=== PATIENT | female | born 1980 | race Asian ===

== ENCOUNTER 2016-11-22 12:56 | Inpatient (IN) | payer OTHER ==
[~2016-11-22] VITALS: Ht 152.4 cm; Wt 53.6 kg
[2016-11-22] MEDS: LACTATED RINGER'S 1,000 ML IV SCH ×2 (13:23→21:16)
[2016-11-22] MEDS ORDERED: OXYTOCIN 30 UNITS/LR 500 ML IV PRN (13:30)
[2016-11-22] MEDS ORDERED: LACTATED RINGER'S 1,000 ML IV PRN (13:30)
[2016-11-22] MEDS ORDERED: CARBOPROST 250 MCG INJ IM PRN (13:30)
[2016-11-22] MEDS ORDERED: BUTORPHANOL 2 MG INJ IV PRN (13:30)
[2016-11-22] MEDS ORDERED: METHYLERGONOVINE 0.2 MG INJ IM PRN (13:30)
[2016-11-22] MEDS ORDERED: LIDOCAINE 1% (MPF) 30 ML INJ INJ PRN (13:30)
[2016-11-22] MEDS ORDERED: AMPICILLIN 2 GM/NS (PMX) 100 ML IV ONE (13:30)
[2016-11-22] MEDS ORDERED: OXYTOCIN 30 UNITS/LR 500 ML IV SCH ×3 (13:30)
[2016-11-22] MEDS ORDERED: IBUPROFEN 600 MG TAB PO PRN (13:30)
[2016-11-22] MEDS ORDERED: MISOPROSTOL 200 MCG TAB PR PRN (13:30)
[2016-11-22 14:29] LABS: INR 0.85; PROTIME 11.6 Sec (12.2-14.2); PT RATIO 0.9
[2016-11-22 14:30] LABS: PARTIAL THROMBOPLASTIN TIME 27.2 Sec (25.0-35.0)
[2016-11-22 15:16] VITALS: BP 95/60; PULSE 64; RESP 18; Ht 152.4 cm; Wt 53.6 kg
[2016-11-22 17:02] LABS: BASOPHIL # 0.1 10^3/ul (0.0-0.1); BASOPHILS % 0.6 % (0.0-2.0); EOSINOPHILS # 0.1 10^3/ul (0.0-0.5); HEMATOCRIT 35.4 % (37.0-47.0); HEMOGLOBIN 12.2 g/dl (12.0-16.0); LYMPHOCYTES # 1.3 10^3/ul (0.8-2.9); LYMPHOCYTES % 15.8 % (15.0-51.0); MEAN CORPUSCULAR HEMOGLOBIN 31.1 pg (29.0-33.0); MEAN CORPUSCULAR HGB CONC 34.5 g/dl (32.0-37.0); MEAN CORPUSCULAR VOLUME 90.3 fl (82.0-101.0); MEAN PLATELET VOLUME 12.5 fl (7.4-10.4); MONOCYTE # 0.8 10^3/ul (0.3-0.9); MONOCYTES % 9.6 % (0.0-11.0); NEUTROPHILS % 72.1 % (39.0-77.0); PLATELET COUNT 164 10^3/UL (140-415); RED BLOOD COUNT 3.92 10^6/ul (4.20-5.40); RED CELL DISTRIBUTION WIDTH 14.7 % (11.5-14.5); WHITE BLOOD COUNT 7.9 10^3/ul (4.8-10.8)
[2016-11-22] MEDS: AMPICILLIN 1 GM/NS (PMX) 50 ML IV SCH ×2 (17:48→21:27)
[2016-11-23] MEDS: AMPICILLIN 1 GM/NS (PMX) 50 ML IV SCH ×4 (01:33→14:14)
[2016-11-23] MEDS: LACTATED RINGER'S 1,000 ML IV SCH (06:48)
--- NOTE | 2016-11-23 16:29 | RADRPT ---
PROCEDURE: US OB biophysical profile. CLINICAL INDICATION: decreased movements, labor pain TECHNIQUE: Multiple sonographic images of the pelvis were obtained. The images were reviewed on a PACS workstation. COMPARISON: No prior studies are available for comparison. FINDINGS: There is a single viable intrauterine gestation. Cardiac activity is present with 156 beats per min tara. There is a vertex presentation. The placenta is anterior. There is no evidence of placental abruption. There is a normal amount of amniotic fluid with an ANTONIO = 19.5 cm. Biophysical profile: movement 2/2 tone 2/2. breathing 2/2 ANTONIO 2/2 Total 10/30 RPTAT: AA . IMPRESSION: Normal biophysical profile. Borderline increased ANTONIO. . .Jono Marshall MD, Date Time Electronically viewed and signed by .Jono Marshall MD, MD on 11/23/2016 16:29 .S/
== END 2016-11-23 16:57 | disposition home or self-care (01) | DRG 780 ==
LOC: L-D 12:56 → EDSTATUS 11-25 12:54
PROVIDERS: ADMIT Obstetrics & Gynecology; ATTEND Obstetrics & Gynecology
DX: O47.1 False labor at or after 37 completed weeks of gestation (principal); O99.820 Streptococcus B carrier state complicating pregnancy; O36.8130 Decreased fetal movements, third trimester, not applicable or unspecified; Z3A.39 39 weeks gestation of pregnancy
CPT/HCPCS: 76818; 85025; 85610; 85730; 86592; 86900; 86901; 87340; J0290; J2590; J7120

== ENCOUNTER 2016-11-23 23:03 | Inpatient (IN) | payer OTHER ==
[~2016-11-23] VITALS: Ht 152.4 cm; Wt 54.1 kg
[2016-11-23] MEDS ORDERED: LACTATED RINGER'S 1,000 ML IV SCH (23:25)
[2016-11-23] MEDS ORDERED: BUTORPHANOL 2 MG INJ IV PRN (23:30)
[2016-11-23] MEDS ORDERED: MISOPROSTOL 200 MCG TAB PR PRN (23:30)
[2016-11-23] MEDS ORDERED: IBUPROFEN 600 MG TAB PO PRN (23:30)
[2016-11-23] MEDS ORDERED: AMPICILLIN 2 GM/NS (PMX) 100 ML IV ONE (23:30)
[2016-11-23] MEDS ORDERED: CARBOPROST 250 MCG INJ IM PRN (23:30)
[2016-11-23] MEDS ORDERED: OXYTOCIN 30 UNITS/LR 500 ML IV SCH ×2 (23:30)
[2016-11-23] MEDS ORDERED: LIDOCAINE 1% (MPF) 30 ML INJ INJ PRN (23:30)
[2016-11-23] MEDS ORDERED: MINERAL OIL LIGHT 10 ML VIAL TOP ONE (23:30)
[2016-11-23] MEDS ORDERED: METHYLERGONOVINE 0.2 MG INJ IM PRN (23:30)
[2016-11-23] MEDS ORDERED: OXYTOCIN 30 UNITS/LR 500 ML IV PRN (23:30)
[2016-11-23 23:42] VITALS: BP 93/53; PULSE 75; RESP 18
[2016-11-23] MEDS ORDERED: LACTATED RINGER'S 1,000 ML IV PRN (23:50)
--- NOTE | 2016-11-24 02:03 | TRIAGE ---
OB Triage Datetime Report Generated by CPN: 11/24/2016 02:03 Datetime: 11/24/2016 01:00 Stage of : Recovery Pain Assessment Pain Scale: 2 Pain Presence: Constant Pain Type: Dull Pain Location: Perineum Pain Relief Measures: Comfort Measures Pain Assessment Comments: pt refusing pain medications Datetime: 11/24/2016 00:44 Stage of : Recovery Pain Assessment Pain Scale: 3 Pain Presence: Constant Pain Type: Sharp; Ache Pain Location: Perineum Pain Relief Measures: Pain Medication Given Pain Assessment Comments: local anesthesia lidocaine administered by Datetime: 11/24/2016 00:29 Stage of : Recovery Temperature Route: Oral Pain Assessment Pain Scale: 5 Pain Presence: Constant Pain Type: Sharp; Ache Pain Location: Perineum Pain Relief Measures: Pain Medication Given Pain Assessment Comments: local anesthesia lidocaine administered by dr. perez as she repairs perine um laceration Datetime: 11/24/2016 00:12 Pain Assessment Pain Scale: 10 Pain Presence: Intermittent Pain Type: Contraction Pain Location: Abdomen Pain Relief Measures: Comfort Measures Pain Assessment Comments: PT REQUESTING EPIDURAL Datetime: 11/24/2016 00:10 Vaginal Exam Dilatation (cms): 10.0 Effacement (%): 100 Station: 1 Membrane Status: Ruptured Membranes Rupture Method: Spontaneous Amniotic Fluid Color: Clear Amniotic Fluid Amount: Large Amniotic Fluid Odor: None Datetime: 11/23/2016 23:41 Stage of : Labor Assessment Type: Admission Assessment Time of Arrival: 11/23/2016 22:55 EGA: 39.2 Arrived By: Wheelchair Arrived From: Home Chief Complaint: c/o ucs Movement: Present Contractions: Regular Contractions: q5 Vaginal Bleeding: None Patient Complaints: Contractions Time Provider Notified: 11/23/2016 23:23 Provider Notified: Dr Perez Initial Plan: EFM,SVE Maternal Assessment Level of Consciousness: Fully Conscious DTR's/Clonus: DTRs 2+; No Clonus Headache: Denies Blurred Vision: No Respiratory Effort: Unlabored; Regular Rhythm; Equal Expansion Breath Sounds, Left: Clear and Equal Breath Sounds, Right: Clear and Equal Nausea/Vomiting: Denies RUQ Epigastric Pain: Denies Lower Extremities Edema: None Degree: None Upper Extremities Edema: None Degree: None Facial Edema: None Temperature Route: Oral Fall Risk Assessment History of Falling: (0) No Secondary Diagnosis: (0) No Ambulatory Aid: (0) Bedrest/Nurse Assist IV Therapy: (20) Yes Gait: (0) Normal/Bedrest/Immobile Mental Status: (0) Oriented to Own Ability Fall Score: 20 Fall Risk Score Definition: No Risk: No action required Pain Assessment Pain Scale: 9 Pain Presence: Intermittent Pain Type: Contraction Pain Location: Abdomen; Perineum Datetime: 11/23/2016 23:20 Vaginal Exam Dilatation (cms): 5.0 Datetime: 11/23/2016 16:40 Maternal Assessment Level of Consciousness: Fully Conscious DTR's/Clonus: DTRs 2+; No Clonus Headache: Denies Blurred Vision: No Nausea/Vomiting: Denies RUQ Epigastric Pain: Denies Facial Edema: None Labor Evaluation Frequency: 0 Monitor Mode: External Contraction Comments: DENIES FEELING ANY UC'S Heart Rate FHR Baseline Rate: 150 Monitor Mode: External US FHR Baseline Changes: No Baseline Change Variability: Moderate 6-25 bpm Accelerations: 15X15 Decelerations: None Category: Category I Pain Presence: None/Denies Datetime: 11/23/2016 16:01 Labor Evaluation Frequency: irreg Monitor Mode: External Duration (sec)2399: 50-60 Quality: Mild Pattern: Normal: <= 5 Contractions in 10 Minutes Resting Tone [place]: Relaxed Heart Rate FHR Baseline Rate: 155 Monitor Mode: External US Variability: Moderate 6-25 bpm Accelerations: 15X15 Decelerations: None Category: Category I Datetime: 11/23/2016 15:18 Vaginal Exam Dilatation (cms): 3.0 Effacement (%): 60 Station: -3 Exam By: Datetime: 11/23/2016 15:01 Labor Evaluation Frequency: x4 Monitor Mode: External Duration (sec)2399: 60 Quality: Mild Pattern: Normal: <= 5 Contractions in 10 Minutes Resting Tone [place]: Relaxed Heart Rate FHR Baseline Rate: 145 Monitor Mode: External US Variability: Moderate 6-25 bpm Accelerations: 15X15 Decelerations: None Category: Category I Pain Presence: None/Denies Pain Type: N/A Datetime: 11/23/2016 12:15 Labor Evaluation Frequency: x2 Monitor Mode: External Duration (sec)2399: 100-120 Quality: Mild Pattern: Normal: <= 5 Contractions in 10 Minutes Resting Tone [place]: Relaxed Heart Rate FHR Baseline Rate: 145 Monitor Mode: External US Variability: Moderate 6-25 bpm Accelerations: 15X15 Decelerations: None Category: Category I Pain Presence: None/Denies Pain Type: N/A Datetime: 11/23/2016 12:00 Labor Evaluation Frequency: X5 Monitor Mode: External Duration (sec)2399: 60-80 Quality: Mild Pattern: Normal: <= 5 Contractions in 10 Minutes Resting Tone [place]: Relaxed Heart Rate FHR Baseline Rate: 145 Monitor Mode: External US Variability: Moderate 6-25 bpm Accelerations: 15X15 Decelerations: None Category: Category I Pain Presence: None/Denies Pain Type: N/A Datetime: 11/23/2016 11:01 Labor Evaluation Frequency: X2 Monitor Mode: External Duration (sec)2399: 90-120 Quality: Mild Pattern: Normal: <= 5 Contractions in 10 Minutes Resting Tone [place]: Relaxed Heart Rate FHR Baseline Rate: 145 Monitor Mode: External US Variability: Minimal - Undetectable to <=5 bpm Accelerations: 15X15 Decelerations: None Category: Category II Pain Presence: None/Denies Pain Type: N/A Datetime: 11/23/2016 09:01 Labor Evaluation Frequency: IRREG Monitor Mode: External Duration (sec)2399: 40-60 Quality: Mild Pattern: Normal: <= 5 Contractions in 10 Minutes Resting Tone [place]: Relaxed Heart Rate FHR Baseline Rate: 145 Monitor Mode: External US Variability: Moderate 6-25 bpm Accelerations: 15X15 Decelerations: None Category: Category I Pain Assessment Pain Scale: 2 Pain Presence: Intermittent Pain Type: Contraction Pain Location: Abdomen Pain Goal: 3 Datetime: 11/23/2016 07:58 Labor Evaluation Frequency: irreg Monitor Mode: Palpation Duration (sec)2399: 50-70 Quality: Mild Pattern: Normal: <= 5 Contractions in 10 Minutes Resting Tone [place]: Relaxed Heart Rate FHR Baseline Rate: 145 Monitor Mode: External US Variability: Moderate 6-25 bpm Accelerations: 15X15 Decelerations: None Category: Category I Pain Assessment Pain Scale: 2 Pain Presence: Intermittent Pain Type: Contraction Pain Location: Abdomen Pain Goal: 3 Datetime: 11/23/2016 07:19 Assessment Type: Ongoing Assessment Maternal Assessment Level of Consciousness: Fully Conscious DTR's/Clonus: DTRs 2+; No Clonus Blurred Vision: No Respiratory Effort: Unlabored; Regular Rhythm; Equal Expansion Breath Sounds, Left: Clear and Equal Breath Sounds, Right: Clear and Equal Nausea/Vomiting: Denies RUQ Epigastric Pain: Denies Lower Extremities Edema: None Degree: None Upper Extremities Edema: None Degree: None Facial Edema: None Fall Risk Assessment History of Falling: (0) No Secondary Diagnosis: (0) No Ambulatory Aid: (0) Bedrest/Nurse Assist Gait: (0) Normal/Bedrest/Immobile Datetime: 11/23/2016 06:34 Labor Evaluation Frequency: 2-5 Monitor Mode: External Duration (sec)2399: 40-80 Quality: Mild Pattern: Normal: <= 5 Contractions in 10 Minutes Resting Tone [place]: Relaxed Heart Rate FHR Baseline Rate: 135 Monitor Mode: External US FHR Baseline Changes: No Baseline Change Variability: Minimal - Undetectable to <=5 bpm Accelerations: 15X15 Decelerations: None Category: Category II Comments: PERIODS OF MODERATE VARIABILITY NOTED Pain Assessment Pain Scale: 2 Pain Presence: Intermittent Pain Type: Contraction Pain Location: Abdomen Pain Relief Measures: Comfort Measures Datetime: 11/23/2016 05:39 Labor Evaluation Frequency: 2-5 Monitor Mode: External Duration (sec)2399: 40-90 Quality: Mild Pattern: Normal: <= 5 Contractions in 10 Minutes Resting Tone [place]: Relaxed Interventions: Side to Side Heart Rate FHR Baseline Rate: 135 Monitor Mode: External US Variability: Moderate 6-25 bpm Accelerations: 15X15 Decelerations: None Category: Category I Pain Assessment Pain Scale: 2 Pain Presence: Intermittent Pain Type: Contraction Pain Location: Abdomen Pain Relief Measures: Comfort Measures Datetime: 11/23/2016 05:25 Vaginal Exam Dilatation (cms): 3.0 Effacement (%): 50 Station: -2 Exam By: CARMELO RN Vaginal Bleeding: None Cervix, Consistency: Soft Datetime: 11/23/2016 04:17 Labor Evaluation Frequency: 2-6 Monitor Mode: External Duration (sec)2399: 60-100 Quality: Mild Pattern: Normal: <= 5 Contractions in 10 Minutes Resting Tone [place]: Relaxed Heart Rate FHR Baseline Rate: 140 Monitor Mode: External US Variability: Moderate 6-25 bpm Accelerations: 15X15 Decelerations: None Category: Category I Pain Assessment Pain Scale: 3 Pain Presence: Intermittent Pain Type: Contraction Pain Location: Abdomen Datetime: 11/23/2016 03:32 Labor Evaluation Frequency: 2-5 Monitor Mode: External Duration (sec)2399: 40-80 Quality: Mild Pattern: Normal: <= 5 Contractions in 10 Minutes Resting Tone [place]: Relaxed Heart Rate FHR Baseline Rate: 135 Monitor Mode: External US FHR Baseline Changes: No Baseline Change Variability: Moderate 6-25 bpm Accelerations: 15X15 Decelerations: None Category: Category I Pain Assessment Pain Scale: 2 Pain Presence: Intermittent Pain Type: Contraction; Pressure Pain Location: Abdomen; Perineum Pain Relief Measures: Comfort Measures Pain Assessment Comments: Pt states no significant change in pain level but slightly more pressure in the perineum. Datetime: 11/23/2016 02:30 Labor Evaluation Frequency: 60-200 Monitor Mode: External Quality: Mild Pattern: Normal: <= 5 Contractions in 10 Minutes Resting Tone [place]: Relaxed Heart Rate FHR Baseline Rate: 135 Monitor Mode: External US FHR Baseline Changes: No Baseline Change Variability: Moderate 6-25 bpm Accelerations: 15X15 Decelerations: None Category: Category I Datetime: 11/23/2016 01:33 Labor Evaluation Frequency: 2-5 Monitor Mode: External Duration (sec)2399: 60-180 Quality: Mild Pattern: Normal: <= 5 Contractions in 10 Minutes Resting Tone [place]: Relaxed Heart Rate FHR Baseline Rate: 140 Monitor Mode: External US FHR Baseline Changes: No Baseline Change Variability: Moderate 6-25 bpm Accelerations: 15X15 Decelerations: None Category: Category I Datetime: 11/23/2016 00:30 Labor Evaluation Frequency: 2-5 Monitor Mode: External Duration (sec)2399: 60-80 Quality: Mild Pattern: Normal: <= 5 Contractions in 10 Minutes Resting Tone [place]: Relaxed Heart Rate FHR Baseline Rate: 135 Monitor Mode: External US FHR Baseline Changes: No Baseline Change Variability: Moderate 6-25 bpm Accelerations: 15X15 Decelerations: None Category: Category I Datetime: 11/22/2016 23:13 Labor Evaluation Frequency: 1.5-3 Monitor Mode: External Duration (sec)2399: 50-130 Quality: Mild Pattern: Normal: <= 5 Contractions in 10 Minutes Resting Tone [place]: Relaxed Heart Rate FHR Baseline Rate: 145 Monitor Mode: External US FHR Baseline Changes: No Baseline Change Variability: Minimal - Undetectable to <=5 bpm Decelerations: None Category: Category II Datetime: 11/22/2016 23:00 Labor Evaluation Frequency: 1.5-6 Monitor Mode: External Duration (sec)2399: 60-150 Quality: Mild Pattern: Normal: <= 5 Contractions in 10 Minutes Resting Tone [place]: Relaxed Heart Rate FHR Baseline Rate: 150 Monitor Mode: External US FHR Baseline Changes: No Baseline Change Variability: Moderate 6-25 bpm Accelerations: 15X15 Decelerations: None Category: Category I Datetime: 11/22/2016 22:32 Pain Assessment Pain Scale: 3 Pain Presence: Intermittent Pain Type: Contraction Pain Location: Abdomen Pain Relief Measures: Comfort Measures Datetime: 11/22/2016 22:00 Labor Evaluation Frequency: 2-5 Monitor Mode: External Duration (sec)2399: 60-120 Quality: Mild Pattern: Normal: <= 5 Contractions in 10 Minutes Resting Tone [place]: Relaxed Heart Rate FHR Baseline Rate: 140 Monitor Mode: External US FHR Baseline Changes: No Baseline Change Variability: Moderate 6-25 bpm Accelerations: 15X15 Decelerations: None Category: Category I Datetime: 11/22/2016 21:52 Monitor Mode: External Monitor Mode: External US Datetime: 11/22/2016 21:49 Comments: pt changed position, monitor loss of contact Datetime: 11/22/2016 21:25 Monitor Mode: External Monitor Mode: External US Datetime: 11/22/2016 21:05 Comments: Pt changing position, periods of loss of contact Datetime: 11/22/2016 21:00 Labor Evaluation Frequency: 1-5 Monitor Mode: External Duration (sec)2399: 40-80 Quality: Mild Pattern: Normal: <= 5 Contractions in 10 Minutes Resting Tone [place]: Relaxed Interventions: Side to Side Monitor Mode: External US Variability: Moderate 6-25 bpm Accelerations: 15X15 Decelerations: Variable Category: Category II Pain Assessment Pain Scale: 2 Pain Presence: Intermittent Pain Type: Contraction Pain Location: Abdomen Pain Relief Measures: Comfort Measures Datetime: 11/22/2016 20:23 Vaginal Exam Dilatation (cms): 3.0 Effacement (%): 30 Station: -2 Exam By: CARMELO Vaginal Bleeding: None Cervix, Consistency: Soft Cervix, Position: Midposition Presentation 'A': Compound Datetime: 11/22/2016 20:21 Monitor Mode: External Monitor Mode: External US Datetime: 11/22/2016 19:26 Assessment Type: Ongoing Assessment Maternal Assessment Level of Consciousness: Fully Conscious DTR's/Clonus: DTRs 2+; No Clonus Headache: Frontal (Annotations: PT STATES VERY MINOR HEADACHE THAT'S NOT REALLY BOTHERING HER.) Blurred Vision: No Respiratory Effort: Unlabored; Regular Rhythm; Equal Expansion Breath Sounds, Left: Clear and Equal Breath Sounds, Right: Clear and Equal Nausea/Vomiting: Denies RUQ Epigastric Pain: Denies Lower Extremities Edema: None Degree: None Upper Extremities Edema: None Degree: None Facial Edema: None Fall Risk Assessment History of Falling: (0) No Secondary Diagnosis: (0) No Ambulatory Aid: (0) Bedrest/Nurse Assist Gait: (0) Normal/Bedrest/Immobile Mental Status: (0) Oriented to Own Ability Labor Evaluation Frequency: 2.5-5 Monitor Mode: External Duration (sec)2399: 60-80 Quality: Mild Pattern: Normal: <= 5 Contractions in 10 Minutes Resting Tone [place]: Relaxed Heart Rate FHR Baseline Rate: 145 Monitor Mode: External US Variability: Moderate 6-25 bpm Accelerations: 15X15 Decelerations: None Category: Category I Pain Assessment Pain Scale: 1 Pain Presence: Intermittent Pain Type: Contraction Pain Location: Abdomen Pain Relief Measures: Comfort Measures Datetime: 11/22/2016 18:36 Assessment Type: Ongoing Assessment Datetime: 11/22/2016 17:35 Stage of : Labor Headache: Denies Blurred Vision: No RUQ Epigastric Pain: Denies Facial Edema: None Labor Evaluation Frequency: 5-6 Monitor Mode: External Duration (sec)2399: 70 Quality: Mild Pattern: Normal: <= 5 Contractions in 10 Minutes Resting Tone [place]: Relaxed Heart Rate FHR Baseline Rate: 150 Monitor Mode: External US FHR Baseline Changes: No Baseline Change Variability: Moderate 6-25 bpm Accelerations: 15X15 Decelerations: None Category: Category I Pain Presence: None/Denies Membrane Status: Intact Datetime: 11/22/2016 17:06 Stage of : Labor Headache: Denies Blurred Vision: No RUQ Epigastric Pain: Denies Facial Edema: None Labor Evaluation Frequency: 6 Monitor Mode: External Duration (sec)2399: 70 Quality: Moderate Pattern: Normal: <= 5 Contractions in 10 Minutes Resting Tone [place]: Relaxed Heart Rate FHR Baseline Rate: 150 FHR Baseline Changes: No Baseline Change Variability: Moderate 6-25 bpm Accelerations: 15X15 Decelerations: None Category: Category I Pain Presence: None/Denies Membrane Status: Intact Datetime: 11/22/2016 16:35 Stage of : Labor Headache: Denies Blurred Vision: No RUQ Epigastric Pain: Denies Facial Edema: None Labor Evaluation Frequency: 5 Monitor Mode: External Quality: Moderate Pattern: Normal: <= 5 Contractions in 10 Minutes Resting Tone [place]: Relaxed Heart Rate FHR Baseline Rate: 150 Monitor Mode: External US FHR Baseline Changes: No Baseline Change Variability: Moderate 6-25 bpm Accelerations: 15X15 Decelerations: None Category: Category I Pain Presence: None/Denies Membrane Status: Intact Datetime: 11/22/2016 16:05 Stage of : Labor Headache: Denies Blurred Vision: No RUQ Epigastric Pain: Present Facial Edema: None Labor Evaluation Frequency: 5-6 Monitor Mode: External Duration (sec)2399: 70 Quality: Mild Pattern: Normal: <= 5 Contractions in 10 Minutes Resting Tone [place]: Relaxed Heart Rate FHR Baseline Rate: 150 Monitor Mode: External US FHR Baseline Changes: No Baseline Change Variability: Moderate 6-25 bpm Accelerations: 15X15 Decelerations: None Category: Category I Pain Presence: None/Denies Membrane Status: Intact Datetime: 11/22/2016 15:13 Stage of : Labor Headache: Denies Blurred Vision: No RUQ Epigastric Pain: Denies Facial Edema: None Labor Evaluation Frequency: 6 Monitor Mode: External Duration (sec)2399: 50 Quality: Mild Pattern: Normal: <= 5 Contractions in 10 Minutes Resting Tone [place]: Relaxed Heart Rate FHR Baseline Rate: 150 Monitor Mode: External US FHR Baseline Changes: No Baseline Change Variability: Moderate 6-25 bpm Accelerations: 15X15 Decelerations: None Category: Category I Pain Presence: None/Denies Membrane Status: Intact Datetime: 11/22/2016 14:35 Stage of : Labor Headache: Denies Blurred Vision: No RUQ Epigastric Pain: Denies Facial Edema: None Labor Evaluation Frequency: 6 Monitor Mode: External Duration (sec)2399: 70 Quality: Mild Pattern: Normal: <= 5 Contractions in 10 Minutes Resting Tone [place]: Relaxed Heart Rate FHR Baseline Rate: 150 Monitor Mode: External US FHR Baseline Changes: No Baseline Change Variability: Moderate 6-25 bpm Accelerations: 15X15 Decelerations: None Category: Category I Pain Presence: None/Denies Membrane Status: Intact Datetime: 11/22/2016 14:07 Stage of : Labor Headache: Denies Blurred Vision: No RUQ Epigastric Pain: Denies Facial Edema: None Labor Evaluation Frequency: 6-7 Monitor Mode: External Duration (sec)2399: 70 Quality: Mild Pattern: Normal: <= 5 Contractions in 10 Minutes Resting Tone [place]: Relaxed Heart Rate FHR Baseline Rate: 150 Monitor Mode: External US FHR Baseline Changes: No Baseline Change Variability: Moderate 6-25 bpm Accelerations: 15X15 Decelerations: None Category: Category I Pain Presence: None/Denies Datetime: 11/22/2016 13:46 Time of Arrival: 11/22/2016 23:35 EGA: 39.1 Arrived By: Ambulatory Arrived From: TRIAGE Datetime: 11/22/2016 13:35 Stage of : Labor Assessment Type: Admission Assessment Vaginal Bleeding: None Maternal Assessment Level of Consciousness: Fully Conscious DTR's/Clonus: DTRs 2+; No Clonus Headache: Denies Blurred Vision: No Respiratory Effort: Unlabored; Regular Rhythm; Equal Expansion Breath Sounds, Left: Clear and Equal Breath Sounds, Right: Clear and Equal Nausea/Vomiting: Denies RUQ Epigastric Pain: Denies Lower Extremities Edema: None Degree: None Upper Extremities Edema: None Degree: None Facial Edema: None Fall Risk Assessment History of Falling: (0) No Secondary Diagnosis: (0) No Ambulatory Aid: (0) Bedrest/Nurse Assist IV Therapy: (0) No Gait: (0) Normal/Bedrest/Immobile Mental Status: (0) Oriented to Own Ability Fall Score: 0 Fall Risk Score Definition: No Risk: No action required Labor Evaluation Frequency: 6-7 Monitor Mode: External Duration (sec)2399: 70 Quality: Mild Pattern: Normal: <= 5 Contractions in 10 Minutes Resting Tone [place]: Relaxed Heart Rate FHR Baseline Rate: 145 Monitor Mode: External US FHR Baseline Changes: No Baseline Change Variability: Moderate 6-25 bpm Accelerations: 15X15 Decelerations: None Category: Category I Pain Presence: None/Denies Membrane Status: Intact Datetime: 11/22/2016 13:29 Pain Assessment Pain Scale: 0 Pain Presence: None/Denies Membrane Status: Intact Datetime: 11/22/2016 13:13 Membranes Ruptured Date/Time: 11/24/2016 00:10 Membranes Rupture Method: Spontaneous Amniotic Fluid Color: Clear Amniotic Fluid Amount: Large Amniotic Fluid Odor: None Presentation 'A': Cephalic
--- NOTE | 2016-11-24 02:33 | LDN ---
Date/Time of Note Date/Time of Note DATE: 11/24/16 TIME: 02:29 Delivery Summary normal vaginal delivery Weeks of Gestation 39w Placenta Delivered: Spontaneously Meconium: none Episiotomy: No Perineal laceration: 2 Laceration repair: 00ch Anesthesia type: Local Estimated blood loss: 200 All needle counts correct: Yes Any foreign bodies felt in the: No Problems: Delivery Information Sex Sex: female Apgars 1 Minute: 8 5 Minute: 9 Suctioning Nose & mouth suctioned at james: Yes Umbilical Cord Umbilical cord with: 3 Vessels Cord Blood was obtained: Yes PAZ JOHN MD Nov 24, 2016 02:33
[2016-11-24 02:45] VITALS: BP 103/69; PULSE 62; RESP 18
[2016-11-24] MEDS ORDERED: CARBOPROST 250 MCG INJ IM PRN (03:00)
[2016-11-24] MEDS ORDERED: ZOLPIDEM 5 MG TAB PO PRN (03:00)
[2016-11-24] MEDS ORDERED: OXYCODONE/ASPIRIN (4.88/325) TAB PO PRN ×2 (03:00)
[2016-11-24] MEDS ORDERED: OXYTOCIN 30 UNITS/LR 500 ML IV PRN (03:00)
[2016-11-24] MEDS ORDERED: WITCH HAZEL/GLYCERIN PAD PR PRN (03:00)
[2016-11-24] MEDS ORDERED: LANOLIN 7 GM TUBE TOP PRN (03:00)
[2016-11-24] MEDS ORDERED: METHYLERGONOVINE 0.2 MG INJ IM PRN (03:00)
[2016-11-24] MEDS ORDERED: MISOPROSTOL 200 MCG TAB PR PRN (03:00)
[2016-11-24] MEDS ORDERED: BENZOCAINE 20% 56 ML SPRAY TOP PRN (03:00)
[2016-11-24] MEDS ORDERED: AMPICILLIN 1 GM/NS (PMX) 50 ML IV SCH ×2 (03:30)
[2016-11-24 03:45] VITALS: BP 104/61; PULSE 67; RESP 19
[2016-11-24] MEDS: IBUPROFEN 600 MG TAB PO SCH ×3 (06:00→18:00)
[2016-11-24 08:30] VITALS: BP 95/50; PULSE 75; RESP 16
[2016-11-24] MEDS: SENNA/DOCUSATE NA (8.6MG/50MG) TAB PO SCH ×2 (09:00→21:00)
--- NOTE | 2016-11-24 10:32 | HP ---
Date/Time of Note Date/Time of Note DATE: 11/24/16 TIME: 10:23 OB - History Hx of Present Free Text/Dictation 36 y.o at 39weeks 3d was here for antibiotics treatment for GBS since her cervix already pen to 2-3 60% -2 f/b augmentation but patient chose to go home instead having augmentation. patient received 8dose of ampicillin and had BPP 10/30 Patient left for home around 1700 11/23/16 but patient return to hospital in active labor with cervix 5 cm 80% -2 admitted for expectant management Past Family/Social History * Past Medical, Surgical, Family and Obstetric Histories reviewed from chart. Blood Type: A+ Rubella: immune RPR/VDRL: Negative GBS Status: Positive HBsAG: Negative OB Admission Exam Vital Signs Vital Signs Vital Signs Date Time Temp Pulse Resp B/P Pulse Ox O2 Delivery O2 Flow Rate FiO2 11/24/16 08:30 98.0 75 16 95/50 Room Air Physical Exam HEENT: WNL Heart: Rhythm Normal Lungs: Clear, Equal Abdomen: WNL Extremities: Normal Reflexes: Normal Cervical Dilatation: 5cm Effacement: 75% Station: -2 Membranes: Intact Amniotic Fluid: Unevaluable Heart Rate: 150's Accelerations: Accelerations Present Decelerations: No Decelerations Varibility: Moderate Contractions on Admission: < 5 Minutes Apart Intensity: Moderate OB Assessment/Plan Reason for admission: active labor Other Assessment: 39w3d Plan: Expectant Management PAZ JOHN MD Nov 24, 2016 10:32
[2016-11-24 16:00] VITALS: BP 95/54; PULSE 74; RESP 16
[2016-11-24 20:00] VITALS: BP 97/57; PULSE 70; RESP 20
[2016-11-25] VITALS: BP 91/54; PULSE 71; RESP 20
[2016-11-25 04:00] VITALS: BP 98/56; PULSE 60; RESP 20
[2016-11-25] MEDS: IBUPROFEN 600 MG TAB PO SCH ×4 (06:00→18:00)
[2016-11-25 08:19] LABS: BASOPHIL # 0.1 10^3/ul (0.0-0.1); BASOPHILS % 0.6 % (0.0-2.0); EOSINOPHILS # 0.2 10^3/ul (0.0-0.5); EOSINOPHILS % 1.4 % (0.0-7.0); HEMATOCRIT 35.6 % (37.0-47.0); HEMOGLOBIN 11.8 g/dl (12.0-16.0); LYMPHOCYTES # 2.7 10^3/ul (0.8-2.9); LYMPHOCYTES % 24.2 % (15.0-51.0); MEAN CORPUSCULAR HEMOGLOBIN 30.5 pg (29.0-33.0); MEAN CORPUSCULAR HGB CONC 33.1 g/dl (32.0-37.0); MEAN PLATELET VOLUME 11.5 fl (7.4-10.4); MONOCYTE # 0.8 10^3/ul (0.3-0.9); MONOCYTES % 7.5 % (0.0-11.0); NEUTROPHILS % 65.5 % (39.0-77.0); PLATELET COUNT 171 10^3/UL (140-415); RED BLOOD COUNT 3.87 10^6/ul (4.20-5.40); RED CELL DISTRIBUTION WIDTH 14.8 % (11.5-14.5); WHITE BLOOD COUNT 11.2 10^3/ul (4.8-10.8)
[2016-11-25 08:20] VITALS: BP 95/56; PULSE 58; RESP 16
[2016-11-25] MEDS: SENNA/DOCUSATE NA (8.6MG/50MG) TAB PO SCH ×2 (09:00→21:24)
[2016-11-25 16:00] VITALS: BP 101/55; PULSE 65; RESP 16
[2016-11-25 20:00] VITALS: BP 98/51; PULSE 87; RESP 20
--- NOTE | 2016-11-25 20:11 | PN ---
Date/Time of Note Date/Time of Note DATE: 11/25/16 TIME: 20:08 OB Subjective Subjective Subjective had b.m sorness on perineal laceration OB Objective Objective Objective vss afebrile fundus firm lochia min calf neg for tenderness OB Assessment/Plan Other Assessment: stable post normal vaginal delivery Other plan: discharge home in am PAZ JOHN MD Nov 25, 2016 20:11
[2016-11-26 04:00] VITALS: BP 88/55; PULSE 52; RESP 18
[2016-11-26] MEDS: IBUPROFEN 600 MG TAB PO SCH ×3 (06:00→12:00)
--- NOTE | 2016-11-26 07:16 | PD.PPDC ---
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
--- NOTE | 2016-11-26 08:00 | DS ---
Date/Time of Note Date/Time of Note DATE: 11/26/16 TIME: 07:58 Obstetrical Discharge Record Final Diagnosis Final Diagnosis: Term delivered Vaginal Delivery Obstetrical Delivery: Spontaneous, Laceration, Repaired Complications Augmentation: No Induction: No Rupture of Membranes: No Condition on Discharge Physical Assessment Last Vitals: vss afebrile Voiding: Yes Bowel Movement: Yes Breast: Soft, non-tender Fundus: Firm Episiotomy: laceration pain is far better Calf Tenderness: No Patient Condition: Stable PAZ JOHN MD Nov 26, 2016 07:59
[2016-11-26 08:30] VITALS: BP 87/50; PULSE 64; RESP 17
[2016-11-26] MEDS ORDERED: DIPHTH/TET/ACEL PERTUSS (ADULT) 0.5 ML VIAL IM* ONE (09:00)
[2016-11-26] MEDS: SENNA/DOCUSATE NA (8.6MG/50MG) TAB PO SCH (10:16)
== END 2016-11-26 14:10 | disposition home or self-care (01) | DRG 775 ==
LOC: OBT 23:03 → L-D 23:05 → OBT 23:25 → PP1 11-24 02:43
PROVIDERS: ADMIT Obstetrics & Gynecology; ATTEND Obstetrics & Gynecology
PROC: 10E0XZZ Delivery of Products of Conception, External Approach (ICD-10-PCS; principal; 2016-11-24)
PROC: 0KQM0ZZ Repair Perineum Muscle, Open Approach (ICD-10-PCS; 2016-11-24)
DX: O99.824 Streptococcus B carrier state complicating childbirth (principal); Z37.0 Single live birth; Z3A.39 39 weeks gestation of pregnancy; O70.1 Second degree perineal laceration during delivery
CPT/HCPCS: 85025; 90715; G0463; J2590; J7120